=== PATIENT | female | born 1965 | race Caucasian/White ===

== ENCOUNTER 2018-03-12 13:51 | Outpatient (CLI) | payer BC | END 2018-03-12 13:52 | disposition home or self-care (01) | LOC: BICMAMMO 13:51 | PROVIDERS: ATTEND Internal Medicine Hematology & Oncology | DX: Z08 Encounter for follow-up examination after completed treatment for malignant neoplasm (principal); Z85.3 Personal history of malignant neoplasm of breast; Z80.3 Family history of malignant neoplasm of breast | CPT/HCPCS: 77066; G0279 ==

== ENCOUNTER 2018-10-06 06:08 | Day surgery (SDC) | payer BC, OTHER ==
[2018-10-03 13:53] VITALS: BMI 34.4
[2018-10-06] MEDS ORDERED: Bupivacaine/Epinephrine 0.25% 30 ML VIAL ONE (06:50)
[2018-10-06] MEDS ORDERED: Lidocaine 1% (PF) 30 ML VIAL ONE (06:54)
[2018-10-06] MEDS ORDERED: Gentamicin 80 MG/2 ML VIAL ONE (06:54)
[2018-10-06] MEDS ORDERED: Gentamicin Ophth Ointment 0.3% 3.5 gm Tube ONE (06:54)
[2018-10-06] MEDS ORDERED: Lidocaine 1% w/Epinephrine 1:100K 20 ML VIAL ONE (06:54)
[2018-10-06] MEDS ORDERED: Fentanyl 250 MCG/5 ML VIAL ONE (07:02)
[2018-10-06] MEDS ORDERED: Heparin 5,000 UNITS/ML VIAL ONE (07:05)
[2018-10-06] MEDS ORDERED: Maxitrol 0.1% Opth Oint 3.5 GM TUBE EA EYE SCH (10:15)
[2018-10-06] MEDS ORDERED: Fentanyl 100 MCG/2 ML VIAL ONE (12:09)
--- NOTE | 2018-10-06 14:11 | OP ---
DATE OF PROCEDURE: 10/06/2018 PREOPERATIVE DIAGNOSIS: 1. History of right breast cancer. 2. Breast asymmetry. 3. Left macromastia. POSTOPERATIVE DIAGNOSES: 1. History of right breast cancer. 2. Breast asymmetry. 3. Left macromastia. PROCEDURE PERFORMED: Unilateral left breast reduction for asymmetry following right breast cancer treatment (.LT). DESCRIPTION OF PROCEDURE: Following the induction of adequate anesthesia, the patient was prepped and draped in usual sterile fashion in the supine position. The patient was modified in Loyd pattern markings, which had been drawn to best simulate to the contralateral size. The nipple was circumcised around a 45 mm nipple Sizer. The skin over the superior pole of the breast was de-epithelialized. Skin flaps were then raised superiorly, medially, and laterally. Dermal glandular units were resected superiorly, medially, and laterally to sculpted pedicles protecting viability and sensibility as well giving the similar shape and size as to the another side. When this was satisfactorily done, the field was copiously irrigated and inspected for meticulous hemostasis prior to closure of the inverted T with 3-0 PDS suture and 3-0 Monocryl suture. The nipple was brought out through a 45 mm nipple defect and similar inset. The patient tolerated the procedure well. Job ID: [id number]
--- NOTE | 2018-10-06 15:21 | OP ---
DATE OF PROCEDURE: 10/06/2018 PREOPERATIVE DIAGNOSIS: lower blepharochalasis POSTOPERATIVE DIAGNOSIS: same PROCEDURE: Transconjunctival blepharoplasty. DESCRIPTION OF PROCEDURE: Serial transconjunctival incisions were made in usual fashion. Dissection was carried through the conjunctiva to identify the different compartments of fat on each eye. The fat was gently teased out and then excised. The field was inspected for meticulous hemostasis prior to placement of the Crocker stitch, which was placed through the ciliary margin and then taping secured to the forehead. Similar procedure was done on each side. The cosmetic procedure began at 0947 hours. Job ID: [id number] MTDD
[2018-10-06] MEDS ORDERED: Rocuronium Bromide 10 MG/ML (10ML VIAL) ONE (15:22)
[2018-10-06] MEDS ORDERED: Dexamethasone 20 MG/5 ML VIAL ONE (15:22)
[2018-10-06] MEDS ORDERED: Ondansetron PF 4 MG/2 ML Vial ONE (15:22)
[2018-10-06] MEDS ORDERED: PROPOFOL 200 MG/20 ML VIAL ONE (15:22)
[2018-10-06] MEDS ORDERED: PHENYLEPHRINE-NS 100 MCG/ML 10 ML SYRINGE ONE (15:22)
[2018-10-06] MEDS ORDERED: Lidocaine 1% PF 5 ML VIAL ONE (15:22)
== END 2018-10-06 14:38 | disposition home or self-care (01) ==
LOC: SDC 06:08
PROVIDERS: ATTEND Plastic Surgery
PROC: 080R0ZZ Alteration of Left Lower Eyelid, Open Approach (ICD-10-PCS; principal; 2018-10-06)
PROC: 080Q0ZZ Alteration of Right Lower Eyelid, Open Approach (ICD-10-PCS; principal; 2018-10-06)
PROC: 0H0U0ZZ Alteration of Left Breast, Open Approach (ICD-10-PCS; principal; 2018-10-06)
DX: N64.89 Other specified disorders of breast (principal); N62 Hypertrophy of breast; H02.35 Blepharochalasis left lower eyelid; H02.32 Blepharochalasis right lower eyelid; Z91.018 Allergy to other foods; Z85.3 Personal history of malignant neoplasm of breast; Z79.51 Long term (current) use of inhaled steroids; Z79.899 Other long term (current) drug therapy
CPT/HCPCS: 88305; J1100; J1580; J1644; J2001; J2405; J2704; J3010; J3370; J3490

== ENCOUNTER 2019-06-18 09:52 | Outpatient (CLI) | payer BC ==
--- NOTE | 2019-06-18 10:41 | MMO ---
Bilateral MAMMO Bilat Diag [id number]. CLINICAL HISTORY: Patient is 53 years old and is seen for diagnostic exam. The patient has the following family history of breast cancer: maternal aunt, malignant (generic) and paternal aunt, malignant (generic). The patient has a history of malignant (generic) in the right breast in 2013. The patient has a history of left mastopexy in October,, right Lumpectomy in September, - malignant and right Ultrasound Guided Core Biopsy in August, - malignant. VIEWS: The views performed were: bilateral craniocaudal with tomosynthesis; bilateral mediolateral oblique with tomosynthesis; bilateral mediolateral with tomosynthesis; and right mediolateral oblique. FILMS COMPARED: The present examination has been compared to prior imaging studies performed at [facility] on 11/16/2014, 12/09/2015, 01/18/2017 and 03/12/2018. This study has been interpreted with the assistance of computer-aided detection. MAMMOGRAM FINDINGS: The breasts are heterogeneously dense, which could obscure a lesion on mammography. Finding 1: There are post-surgical scars seen in both breasts. Finding 2: There are benign appearing calcifications seen in both breasts. There are no suspicious masses, suspicious calcifications, or new areas of architectural distortion. IMPRESSION: THERE IS NO MAMMOGRAPHIC EVIDENCE OF MALIGNANCY. A ROUTINE FOLLOW-UP MAMMOGRAM IN 1 YEAR IS RECOMMENDED. THE RESULTS OF THIS EXAM WERE SENT TO THE PATIENT. ACR BI-RADS Category 2 - Benign finding MAMMOGRAPHY NOTE: 1. A negative mammogram report should not delay a biopsy if a dominant of clinically suspicious mass is present. 2. Approximately 10% to 15% of breast cancers are not detected by mammography. 3. Adenosis and dense breasts may obscure an underlying neoplasm. Reported by: HERNESTO MONTELONGO MD Electonically Signed: [id number]
== END 2019-06-18 09:53 | disposition home or self-care (01) ==
LOC: BICMAMMO 09:52
PROVIDERS: ATTEND Internal Medicine Hematology & Oncology
DX: Z08 Encounter for follow-up examination after completed treatment for malignant neoplasm (principal); Z85.3 Personal history of malignant neoplasm of breast
CPT/HCPCS: 77066; G0279

== ENCOUNTER 2020-11-01 15:02 | Outpatient (CLI) | payer BC | END 2020-11-01 15:03 | disposition home or self-care (01) | LOC: BICMAMMO 15:02 | PROVIDERS: ATTEND Internal Medicine Hematology & Oncology | DX: C50.811 Malignant neoplasm of overlapping sites of right female breast (principal); G63 Polyneuropathy in diseases classified elsewhere; I89.0 Lymphedema, not elsewhere classified; Z91.89 Other specified personal risk factors, not elsewhere classified | CPT/HCPCS: 77066; G0279 ==

== ENCOUNTER → 2020-11-07 | Day surgery (SDC) | payer BC | LOC: MAMMO 07:01 | PROVIDERS: ATTEND Internal Medicine Hematology & Oncology | PROC: 0H9U0ZX Drainage of Left Breast, Open Approach, Diagnostic (ICD-10-PCS; principal; 2020-11-07) | DX: N63.23 Unspecified lump in the left breast, lower outer quadrant (principal); Z91.018 Allergy to other foods | CPT/HCPCS: 19081; 76098; 88305 ==

== ENCOUNTER 2020-11-21 12:11 | Outpatient (CLI) | payer BC ==
[2020-11-21 13:12] LABS: #Eosinphils 0.1 10x3/uL (0.0-0.5); #Monocytes 0.4 10x3/uL (0.0-1.1); #Neutrophils 2.7 10x3/uL (1.5-8.4); %Basophils 0.4 % (0.0-2.0); %Eosinophils 1.9 % (0.0-6.0); %Lymphocytes 37.2 % (18.0-47.0); %Monocytes 7.2 % (0.0-10.0); %Neutrophils 53.1 % (40.0-75.0); Hemoglobin 12.5 g/dL (12.0-15.5); Mean Corpuscular HGB CONC 32.3 g/dL (32.0-36.0); Mean Corpuscular Hemoglobin 29.3 pg (27.0-33.0); Mean Corpuscular Volume 90.8 fl (81.6-98.3); Mean Platelet Volume 10.6 fl (7.4-10.4); Platelet Count 212 10x3/uL (150-450); RBC Distribution Width 12.7 % (11.5-14.5); Red Blood Cell (RBC) Count 4.26 10x6/uL (3.90-5.03); White Blood Cell (WBC) Count 5.1 10x3/uL (3.5-10.5)
[2020-11-21 14:15] LABS: Anion Gap 14 mmol/L (10-20); BUN (Urea Nitrogen) 11 mg/dL (9.8-20.1); Calc. Creatinine Clearance 0 mL/min (70-130); Carbon Dioxide 23 mmol/L (22-29); Chloride 106 mmol/L (98-107); Glucose 122 mg/dL (70-105); Potassium 4.1 mmol/L (3.5-5.1); Sodium 139 mmol/L (136-145)
[2020-11-22 06:59] LABS: SARS-CoV-2 PCR by NAA Not Detected (NotDetected)
== END 2020-11-21 12:12 | disposition home or self-care (01) ==
LOC: LABBT 12:11
PROVIDERS: ATTEND Specialist
DX: Z01.818 Encounter for other preprocedural examination (principal); R92.1 Mammographic calcification found on diagnostic imaging of breast; Z20.822 Contact with and (suspected) exposure to COVID-19
CPT/HCPCS: 80048; 85025; 87635; 93005; 93010; U0003; U0005

== ENCOUNTER 2020-11-24 07:00 | Day surgery (SDC) | payer BC ==
[2020-11-24] MEDS ORDERED: Acetaminophen 500 MG TAB ONE (08:49)
[2020-11-24] MEDS ORDERED: Ketorolac Tromethamine 30 MG/ML VIAL ONE (08:49)
[2020-11-24] MEDS ORDERED: Fentanyl 100 MCG/2 ML VIAL ONE (11:37)
[2020-11-24] MEDS ORDERED: Lidocaine 1% w/Epinephrine 1:100K 20 ML VIAL ONE (11:40)
[2020-11-24] MEDS ORDERED: Bupivacaine 0.25% HCL 30 ML VIAL ONE (11:40)
[2020-11-24] MEDS ORDERED: Dexamethasone 20 MG/5 ML VIAL ONE (12:06)
[2020-11-24] MEDS ORDERED: Ondansetron PF 4 MG/2 ML Vial ONE (12:06)
[2020-11-24] MEDS ORDERED: Lidocaine 1% PF 5 ML VIAL ONE (12:06)
[2020-11-24] MEDS ORDERED: PROPOFOL 200 MG/20 ML VIAL ONE (12:06)
== END 2020-11-24 14:31 | disposition home or self-care (01) ==
LOC: SDC 07:00
PROVIDERS: ATTEND Specialist
PROC: 0HB Skin and Breast, Excision (ICD-10-PCS; principal; 2020-11-24)
DX: N64.1 Fat necrosis of breast (principal); N60.32 Fibrosclerosis of left breast; N61.0 Mastitis without abscess; R92.1 Mammographic calcification found on diagnostic imaging of breast; Z79.899 Other long term (current) drug therapy; Z85.3 Personal history of malignant neoplasm of breast; Z91.018 Allergy to other foods
CPT/HCPCS: 19281; 76098; 88307; J0690; J1100; J1885; J2405; J2704; J3010; S0020

== ENCOUNTER 2022-07-24 08:26 | Outpatient (CLI) | payer BC | END 2022-07-24 08:27 | disposition home or self-care (01) | LOC: BICMAMMO 08:26 | PROVIDERS: ATTEND Internal Medicine Hematology & Oncology | DX: Z12.31 Encounter for screening mammogram for malignant neoplasm of breast (principal); Z80.3 Family history of malignant neoplasm of breast; Z85.3 Personal history of malignant neoplasm of breast; Z98.890 Other specified postprocedural states | CPT/HCPCS: 77063; 77067 ==

== ENCOUNTER 2025-04-09 09:04 | Outpatient (CLI) | payer BC | END 2025-04-09 09:05 | disposition home or self-care (01) | LOC: BICMAMMO 09:04 | PROVIDERS: ATTEND Internal Medicine Hematology & Oncology | DX: Z12.31 Encounter for screening mammogram for malignant neoplasm of breast (principal); Z80.3 Family history of malignant neoplasm of breast; Z85.3 Personal history of malignant neoplasm of breast; Z98.890 Other specified postprocedural states | CPT/HCPCS: 77063; 77067 ==